=== PATIENT | female | born 1980 | race American Indian/Alaskan Native ===

== ENCOUNTER 2019-01-20 18:13 | Emergency (ER) | payer SELFPAY ==
--- NOTE | 2019-01-20 19:12 | Event Note ---
ED Screening Note Date of service: 01/20/19 Time: 19:11 ED Screening Note: 38 y o f presents with righ sided groin pain and swelling x 3 days This initial assessment/diagnostic orders/clinical plan/treatment(s) is/are subject to change based on patients health status, clinical progression and re- assessment by fellow clinical providers in the ED. Further treatment and workup at subsequent clinical providers discretion. Patient/guardian urged not to elope from the ED as their condition may be serious if not clinically assessed and managed. Initial orders include: acc eval
[2019-01-20] MEDS ORDERED: LIDOCAINE (1%) 10 MG/1 ML VIAL 20 ML MDV INFILTRATI ONE (22:02)
[2019-01-20] MEDS ORDERED: oxyCODONE /ACETAMINOPHEN 5-325MG TAB PO ONE (22:02)
--- NOTE | 2019-01-20 22:03 | Emergency Department Report ---
ED General Adult HPI - General Chief complaint: Extremity Problem,Nontraumatic Stated complaint: RT LEG PAIN/SWELLING Time Seen by Provider: 01/20/19 19:11 Source: patient Mode of arrival: Ambulatory Limitations: No Limitations - History of Present Illness Initial comments: 38-year-old -[place] female patient complains of right labial swelling a nd pain 4 days. She rates her pain as a 10/10 in severity and states it as a deep aching throbbing type pain. Pain worsens with movement and walking. She denies any fevers/chills/sweats, dysuria, or vaginal discharge. She denies history of Bartholin's abscess or cyst. -: Gradual Radiation: non-radiation Severity scale (0 -10): 10 Improves with: immobilization Worsens with: movement Associated Symptoms: denies other symptoms Treatments Prior to Arrival: none - Related Data Previous Rx's Medication Instructions Recorded Last Taken Type Acetaminophen/Codeine [Tylenol 1 tab PO Q6H PRN #10 tab 01/21/19 Unknown Rx /Codeine # 3 tab] Ibuprofen [Motrin 800 MG tab] 800 mg PO Q8HR PRN #21 tablet 01/21/19 Unknown Rx Mupirocin [Bactroban 2% OINT] 1 applic TP TID 7 Days #1 tube 01/21/19 Unknown Rx Sulfamethoxazole/Trimethoprim 1 each PO BID 10 Days #20 tablet 01/21/19 Unknown Rx [Bactrim DS TAB] Allergies Allergy/AdvReac Type Severity Reaction Status Date / Time No Known Allergies Allergy Unverified 01/20/19 18:25 ED Review of Systems ROS: Stated complaint: RT LEG PAIN/SWELLING Other details as noted in HPI Comment: All other systems reviewed and negative Genitourinary: as per HPI Skin: as per HPI ED Past Medical Hx - Past Medical History Previous Medical History?: No - Surgical History Past Surgical History?: No - Social History Smoking Status: Current Every Day Smoker Substance Use Type: None - Medications Home Medications: Home Medications Medication Instructions Recorded Confirmed Last Taken Type Acetaminophen/Codeine [Tylenol 1 tab PO Q6H PRN #10 tab 01/21/19 Unknown Rx /Codeine # 3 tab] Ibuprofen [Motrin 800 MG tab] 800 mg PO Q8HR PRN #21 tablet 01/21/19 Unknown Rx Mupirocin [Bactroban 2% OINT] 1 applic TP TID 7 Days #1 tube 01/21/19 Unknown Rx Sulfamethoxazole/Trimethoprim 1 each PO BID 10 Days #20 tablet 01/21/19 Unknown Rx [Bactrim DS TAB] ED Physical Exam - General Limitations: No Limitations - Head Head exam: Present: atraumatic, normocephalic - Eye Eye exam: Present: normal appearance - ENT ENT exam: Present: mucous membranes moist - Respiratory Respiratory exam: Present: normal lung sounds bilaterally. Absent: respiratory distress - Cardiovascular Cardiovascular Exam: Present: regular rate, normal rhythm. Absent: systolic murmur, diastolic murmur, rubs, gallop - Bi-manual exam: Present: other (right sided Bartholin's abscess noted with significant tenderness to palpation and moderate swelling) - Extremities Exam Extremities exam: Present: normal inspection - Neurological Exam Neurological exam: Present: alert, oriented X3 - Psychiatric Psychiatric exam: Present: normal affect, normal mood - Skin Skin exam: Present: warm, dry, intact, normal color. Absent: rash ED Course Vital Signs 01/20/19 19:11 Temperature 98.3 F Pulse Rate 87 Respiratory 14 Rate Blood Pressure 116/67 O2 Sat by Pulse 96 Oximetry - I & D labia Site: right labia Blade Size: 11 I & D Procedure: betadine prep Progress: Sterile prep. Lidocaine 1% use for analgesia. No purulent drainage was obtained from area. Minimal bleeding. Patient tolerated procedure well without any immediate complications. ED Medical Decision Making - Medical Decision Making 38-year-old -[place] female here with right labial pain and swelling 4 days. Bartholin's abscess noted. No drainage was obtained on I&D. Patient to discharge home with Bactrim. Discussed the importance of warm compresses and signs and symptoms that should prompt return to the emergency department. Patient verbalizes understanding. Recommend follow up with [facility] in 3-5 days. Critical care attestation.: If time is entered above; I have spent that time in minutes in the direct care of this critically ill patient, excluding procedure time. ED Disposition Clinical Impression: Bartholin's gland abscess Disposition: TO HOME OR SELFCARE Is pt being admited?: No Condition: Stable Instructions: Bartholin Cyst (ED), Incision and Drainage (ED) Additional Instructions: Please follow-up with your [facility] within 3-5 days. You experience new or worsening symptoms as discussed please seek immediate emergency treatment Prescriptions: Sulfamethoxazole/Trimethoprim [Bactrim DS TAB] 1 each PO BID 10 Days #20 tablet Mupirocin [Bactroban 2% OINT] 1 applic TP TID 7 Days #1 tube Ibuprofen [Motrin 800 MG tab] 800 mg PO Q8HR PRN #21 tablet PRN Reason: Pain, Moderate (4-6) Acetaminophen/Codeine [Tylenol /Codeine # 3 tab] 1 tab PO Q6H PRN #10 tab PRN Reason: Pain , Severe (7-10) Forms: Work/School Release Form(ED)
[2019-01-21 02:50] VITALS: BP 114/66
== END 2019-01-21 00:30 | disposition home or self-care (01) ==
LOC: ED 18:13
DX: N75.1 Abscess of Bartholin's gland (principal); F17.200 Nicotine dependence, unspecified, uncomplicated; Z79.899 Other long term (current) drug therapy